=== PATIENT | male | born 1985 | race Caucasian/White ===

== ENCOUNTER 2016-09-10 13:52 | Emergency (ER) | payer OTHER ==
--- NOTE | 2016-09-10 16:03 | REP ---
Clinical: Right posterior headache . Comparison: None . Findings: The ventricles, sulci, and cisterns are normal in position and appearance. Boone-white differentiation is maintained. No acute intracranial hemorrhage, mass/mass effect, pathology or trauma/injury. No evidence for acute infarction. No extra-axial fluid collection. Calvarium is intact. Paranasal sinuses and mastoid air cells are clear. Impression: Normal noncontrast head CT. No evidence for acute intracranial pathology or trauma/injury. Signed by Berhane Gtz MD 09/10/2016 03:55 P
--- NOTE | 2016-09-10 16:46 | EDDOCDS ---
Physician Documentation [facility] Name: Glenn Jaime Age: 30 yrs Sex: Male : 1985 Arrival Date: 09/10/2016 Time: 13:52 Bed TR7 Private MD: NO PRIMARY PHYSICIAN, . Disposition: 09/10/16 16:15 Discharged to Home/Self Care. Impression: Headache associated with sexual activity. - Condition is Stable. - Discharge Instructions: General Headache Without Cause. - Prescriptions for Naprosyn 500 mg Oral Tablet - take 1 tablet by ORAL route every 12 hours As needed take with food; 30 tablet. Reglan 10 mg Oral Tablet - take 1 tablet by ORAL route every 8 hours As needed take 30 minutes before meals and at bedtime; 20 tablet. - Medication Reconciliation, Local Pharmacy Hours form. - Follow up: Emergency Department; When: As needed; Reason: Worsening of conditions. [facility]; When: Call to arrange an appointment; Reason: Recheck today's complaints, Continuance of care, To establish care. Follow up: Lachelle Wiggins MD; When: Call to arrange an appointment; Reason: Wound/Symptom Recheck, Further diagnostic work-up, Recheck today's complaints, Continuance of care, To establish care. - Problem is new. - Symptoms are unchanged. - Notes: THERE WAS NO ABNORMALITY ON YOUR CT SCAN TODAY. PLEASE RETURN TO THE ER WITH ANY WORSENING SYMPTOMS. Historical: - Allergies: No known drug Allergies; - Home Meds: 1. none - PMHx: none; - PSHx: left shoulder surgery x2; - Social history: Smoking status: Patient states was never smoker of tobacco. No barriers to communication noted, The patient speaks fluent Tristanian, Speaks appropriately for age. - Family history: Not pertinent. - : The pt / caregiver states he / she is not on anticoagulants. Home medication list is obtained from the patient. - Exposure Risk Screening:: None identified. Vital Signs: 09/10 13:53 BP 142 / 80; Pulse 78; Resp 18 S; Temp 97.3; Pulse Ox 99% on R/A; Weight 90.72 kg / 200 dd6 lbs (R); Height 5 ft. 11 in. (180.34 cm) (R); 16:15 BP 149 / 87; Pulse 60; Resp 18; Temp 97.8(O); Pulse Ox 99% on R/A; Pain 2/10; jb5 13:53 Body Mass Index 27.89 (90.72 kg, 180.34 cm) dd6 MDM: 15:03 [facility] Payment Agreement was scanned into [employer] and attached to record. lg 15:46 CT Head Without Contrast Ordered. EDMS 15:59 [facility] Payment Agreement was scanned into [employer] and attached to record. gjb 15:59 Financial registration complete. gjb Signatures: Dispatcher [employer] EDMS Tony Chavez, Reg Reg lg Roni Dueñas, RN RN Carina Connell, PAShahzad PAShahzad dt4 Kanwal Quan The chart was reviewed and I authenticate all verbal orders and agree with the evaluation and treatment provided.Attachments: 15:59 [facility] Payment Agreement gjb MTDD
--- NOTE | 2016-09-10 16:46 | EDDOCDS ---
Nurse's Notes [facility] Name: Glenn Jaime Age: 30 yrs Sex: Male : 1985 Arrival Date: 09/10/2016 Time: 13:52 Bed TR7 Private MD: NO PRIMARY PHYSICIAN, . Diagnosis: Headache associated with sexual activity Presentation: 09/10 13:54 Presenting complaint: Patient states: constant right back of head pain for the last dy couple weeks. pain with pressure that has been lingering. denies associated symptoms. has taken Excedrin with no relief but nothing for pain today. This patient has no additional risk factors. Adult Sepsis Screening: The patient does not have new or worsening altered mentation. Patient's respiratory rate is less than 22. Systolic blood pressure is greater than 100. Patient has a qSOFA score of 0- Negative Sepsis Screen. Suicide/Homicide risk assessment- the patient denies having any suicidal and/or homicidal ideations and does not present with any other emotional, behavioral or mental health complaints. Status: Patient is not a services coordinator or dependent. Transition of care: patient was not received from another setting of care. 13:54 Acuity: SHIKHA Level 4 dy 13:54 Method Of Arrival: Walkin/Carried/Asstd dy Triage Assessment: 13:56 Headache History: This patient does not have a history of previous headaches. General: dy Appears in no apparent distress. Pain: Location: right parietal area Pain currently is 2 out of 10 on a pain scale. Pain began 2-3 weeks ago Also complains of no other associated symptoms. HIV screening NA for this visit Offered previously. Neurological: Level of Consciousness is awake, alert, obeys commands. Historical: - Allergies: No known drug Allergies; - Home Meds: 1. none - PMHx: none; - PSHx: left shoulder surgery x2; - Social history: Smoking status: Patient states was never smoker of tobacco. No barriers to communication noted, The patient speaks fluent Yi, Speaks appropriately for age. - Family history: Not pertinent. - : The pt / caregiver states he / she is not on anticoagulants. Home medication list is obtained from the patient. - Exposure Risk Screening:: None identified. Screenin:44 Screening information is obtained from the patient. Fall risk: No risks identified. dy Assistance ADL's: requires no assistance with activities of daily living. Abuse/DV Screen: The patient / caregiver reports he/she is: not in a situation that causes fear, pain or injury. Nutritional screening: No deficits noted. Advance Directives: There is no active DNR order. home support is adequate. Assessment: 16:44 General: Appears in no apparent distress, comfortable, Behavior is appropriate for age, dy cooperative. Pain: Location: right parietal area Pain currently is 2 out of 10 on a pain scale. Vital Signs: 13:53 BP 142 / 80; Pulse 78; Resp 18 S; Temp 97.3; Pulse Ox 99% on R/A; Weight 90.72 kg (R); dd6 Height 5 ft. 11 in. (180.34 cm) (R); 16:15 BP 149 / 87; Pulse 60; Resp 18; Temp 97.8(O); Pulse Ox 99% on R/A; Pain 2/10; jb5 13:53 Body Mass Index 27.89 (90.72 kg, 180.34 cm) dd6 Vitals: 13:53 Log In Time: September 10, 2016 at 13:51. dd6 ED Course: 13:53 Patient visited by Jigar Infante PCA. dd6 13:53 NO PRIMARY PHYSICIAN, . is Private Physician. dd6 13:53 Patient moved to Waiting dd6 13:54 Patient moved to Pre RCE dd6 13:55 Triage Initiated dy 14:26 Patient moved to Triage 1 dy 14:50 Patient visited by Marlen Cast PCA. jb5 15:03 [facility] Payment Agreement was scanned into [employer] and attached to record. lg 15:29 Patient visited by Marlen Cast PCA. jb5 15:34 Carina Rudolph PA-C is PHCP. dt4 15:34 Shima Castro MD is Attending Physician. dt4 15:34 Patient visited by Carina Rudolph PA-C. dt4 15:46 Patient moved to TR1 jf3 15:59 [facility] Payment Agreement was scanned into [employer] and attached to record. gjb 16:13 Patient moved to PR1 / 25 jb5 16:14 [facility] is Referral Physician. dt4 16:14 Lachelle Wiggins MD is Referral Physician. dt4 16:15 Patient visited by Marlen Cast PCA. jb5 16:16 Patient visited by Marlen Cast PCA. jb5 16:22 CT Head Without Contrast Returned. EDMS 16:44 Patient moved to TR7 dy 16:44 The patient / caregiver is instructed regarding the plan of care and ED course. Patient dy has correct armband on for positive identification. 16:44 No IV's were initiated during this patient's visit. No procedures done that require dy assistance. Order Results: Radiology Order: CT Head Without Contrast Test: CT Head Without Contrast REASON FOR EXAMINATION: right posterior burger; Clinical: Right posterior headache .; ; Comparison: None .; ; Findings:; The ventricles, sulci, and cisterns are normal in position and appearance.; Boone-white differentiation is maintained. No acute intracranial hemorrhage,; mass/mass effect, pathology or trauma/injury. No evidence for acute infarction.; No extra-axial fluid collection. Calvarium is intact. Paranasal sinuses and; mastoid air cells are clear.; ; Impression:; Normal noncontrast head CT.; No evidence for acute intracranial pathology or trauma/injury.; ; ; Signed by; Berhane Gtz MD 09/10/2016 03:55 P; Outcome: 16:15 Discharge ordered by Provider. dt4 16:44 Discharge Assessment: patient administered narcotics - no. The following High Risk dy Discharge criteria are identified: None. Discharged to home ambulatory. Condition: good. Discharge instructions given to patient, Instructed on discharge instructions, follow up and referral plans. medication usage, Demonstrated understanding of instructions, medications, Pt was receptive of discharge instructions/ teaching. Prescriptions given X 2. CT Study completed. Property sent home with patient. 16:45 Patient left the ED. dy Signatures: Dispatcher [employer] EDDC Tony Chavez, Tariq Reg Roni Longoria RN RN dy Marlen Cast, SLATE MIXER SLATE MIXER jb5 Jigar Infante, SLATE MIXER SLATE MIXER dd6 Carina Rudolph PAShahzad PAOraC dt4 Glenn Pritchard RN RN Kanwal Whitlock MTDD
--- NOTE | 2016-09-12 17:47 | EDDOCDS ---
Physician Documentation [facility] Name: Glenn Jaime Age: 30 yrs Sex: Male : 1985 Arrival Date: 09/10/2016 Time: 13:52 Bed TR7 Private MD: NO PRIMARY PHYSICIAN, . Disposition: 09/10/16 16:15 Discharged to Home/Self Care. Impression: Headache associated with sexual activity. - Condition is Stable. - Discharge Instructions: General Headache Without Cause. - Prescriptions for Naprosyn 500 mg Oral Tablet - take 1 tablet by ORAL route every 12 hours As needed take with food; 30 tablet. Reglan 10 mg Oral Tablet - take 1 tablet by ORAL route every 8 hours As needed take 30 minutes before meals and at bedtime; 20 tablet. - Medication Reconciliation, Local Pharmacy Hours form. - Follow up: Emergency Department; When: As needed; Reason: Worsening of conditions. [facility]: [facility]; When: Call to arrange an appointment; Reason: Recheck today's complaints, Continuance of care, To establish care. Follow up: Lachelle Wiggins MD; When: Call to arrange an appointment; Reason: Wound/Symptom Recheck, Further diagnostic work-up, Recheck today's complaints, Continuance of care, To establish care. - Problem is new. - Symptoms are unchanged. - Notes: THERE WAS NO ABNORMALITY ON YOUR CT SCAN TODAY. PLEASE RETURN TO THE ER WITH ANY WORSENING SYMPTOMS. Historical: - Allergies: No known drug Allergies; - Home Meds: 1. none - PMHx: none; - PSHx: left shoulder surgery x2; - Social history: Smoking status: Patient states was never smoker of tobacco. No barriers to communication noted, The patient speaks fluent Montenegrin, Speaks appropriately for age. - Family history: Not pertinent. - : The pt / caregiver states he / she is not on anticoagulants. Home medication list is obtained from the patient. - Exposure Risk Screening:: None identified. Vital Signs: 09/10 13:53 BP 142 / 80; Pulse 78; Resp 18 S; Temp 97.3; Pulse Ox 99% on R/A; Weight 90.72 kg / 200 dd6 lbs (R); Height 5 ft. 11 in. (180.34 cm) (R); 16:15 BP 149 / 87; Pulse 60; Resp 18; Temp 97.8(O); Pulse Ox 99% on R/A; Pain 2/10; jb5 13:53 Body Mass Index 27.89 (90.72 kg, 180.34 cm) dd6 MDM: 15:03 [facility] Payment Agreement was scanned into [employer] and attached to record. lg 15:46 CT Head Without Contrast Ordered. EDMS 15:59 [facility] Payment Agreement was scanned into [employer] and attached to record. gjb 15:59 Financial registration complete. gj 09/11 09:25 T-Sheet-- Draft Copy was scanned into [employer] and attached to record. gb Signatures: Dispatcher [employer] EDMS Ginny Fontana, Reg Reg gb Tony Chavez, Reg Reg lg Roni Dueñas, RN RN Carina Connell, PA-C PA-C [email or web address] Kanwal Quan The chart was reviewed and I authenticate all verbal orders and agree with the evaluation and treatment provided.Attachments: 15:59 [facility] Payment Agreement [facility] 09/11 09:25 T-Sheet-- Draft Copy gb Chart Complete MTDD
--- NOTE | 2016-09-12 17:47 | EDDOCDS ---
Physician Documentation [facility] Name: Glenn Jaime Age: 30 yrs Sex: Male : 1985 Arrival Date: 09/10/2016 Time: 13:52 Bed TR7 Private MD: NO PRIMARY PHYSICIAN, . Disposition: 09/10/16 16:15 Discharged to Home/Self Care. Impression: Headache associated with sexual activity. - Condition is Stable. - Discharge Instructions: General Headache Without Cause. - Prescriptions for Naprosyn 500 mg Oral Tablet - take 1 tablet by ORAL route every 12 hours As needed take with food; 30 tablet. Reglan 10 mg Oral Tablet - take 1 tablet by ORAL route every 8 hours As needed take 30 minutes before meals and at bedtime; 20 tablet. - Medication Reconciliation, Local Pharmacy Hours form. - Follow up: Emergency Department; When: As needed; Reason: Worsening of conditions. [facility]: [facility]; When: Call to arrange an appointment; Reason: Recheck today's complaints, Continuance of care, To establish care. Follow up: Lachelle Wiggins MD; When: Call to arrange an appointment; Reason: Wound/Symptom Recheck, Further diagnostic work-up, Recheck today's complaints, Continuance of care, To establish care. - Problem is new. - Symptoms are unchanged. - Notes: THERE WAS NO ABNORMALITY ON YOUR CT SCAN TODAY. PLEASE RETURN TO THE ER WITH ANY WORSENING SYMPTOMS. Historical: - Allergies: No known drug Allergies; - Home Meds: 1. none - PMHx: none; - PSHx: left shoulder surgery x2; - Social history: Smoking status: Patient states was never smoker of tobacco. No barriers to communication noted, The patient speaks fluent Kosovan, Speaks appropriately for age. - Family history: Not pertinent. - : The pt / caregiver states he / she is not on anticoagulants. Home medication list is obtained from the patient. - Exposure Risk Screening:: None identified. Vital Signs: 09/10 13:53 BP 142 / 80; Pulse 78; Resp 18 S; Temp 97.3; Pulse Ox 99% on R/A; Weight 90.72 kg / 200 dd6 lbs (R); Height 5 ft. 11 in. (180.34 cm) (R); 16:15 BP 149 / 87; Pulse 60; Resp 18; Temp 97.8(O); Pulse Ox 99% on R/A; Pain 2/10; jb5 13:53 Body Mass Index 27.89 (90.72 kg, 180.34 cm) dd6 MDM: 15:03 [facility] Payment Agreement was scanned into [employer] and attached to record. lg 15:46 CT Head Without Contrast Ordered. EDMS 15:59 [facility] Payment Agreement was scanned into [employer] and attached to record. gjb 15:59 Financial registration complete. gj 09/11 09:25 T-Sheet-- Draft Copy was scanned into [employer] and attached to record. gb Signatures: Dispatcher [employer] EDMS Ginny Fontana, Reg Reg gb Tony Chavez, Reg Reg lg Roni Dueñas, RN RN Carina Connell, PA-C PA-C [email or web address] Kanwal Quan The chart was reviewed and I authenticate all verbal orders and agree with the evaluation and treatment provided.Attachments: 15:59 [facility] Payment Agreement [facility] 09/11 09:25 T-Sheet-- Draft Copy gb Chart Complete MTDD
--- NOTE | 2016-09-12 17:47 | EDDOCDS ---
Nurse's Notes [facility] Name: Glenn Jaime Age: 30 yrs Sex: Male : 1985 Arrival Date: 09/10/2016 Time: 13:52 Bed TR7 Private MD: NO PRIMARY PHYSICIAN, . Diagnosis: Headache associated with sexual activity Presentation: 09/10 13:54 Presenting complaint: Patient states: constant right back of head pain for the last dy couple weeks. pain with pressure that has been lingering. denies associated symptoms. has taken Excedrin with no relief but nothing for pain today. This patient has no additional risk factors. Adult Sepsis Screening: The patient does not have new or worsening altered mentation. Patient's respiratory rate is less than 22. Systolic blood pressure is greater than 100. Patient has a qSOFA score of 0- Negative Sepsis Screen. Suicide/Homicide risk assessment- the patient denies having any suicidal and/or homicidal ideations and does not present with any other emotional, behavioral or mental health complaints. Status: Patient is not a service restorer emergency or dependent. Transition of care: patient was not received from another setting of care. 13:54 Acuity: SHIKHA Level 4 dy 13:54 Method Of Arrival: Walkin/Carried/Asstd dy Triage Assessment: 13:56 Headache History: This patient does not have a history of previous headaches. General: dy Appears in no apparent distress. Pain: Location: right parietal area Pain currently is 2 out of 10 on a pain scale. Pain began 2-3 weeks ago Also complains of no other associated symptoms. HIV screening NA for this visit Offered previously. Neurological: Level of Consciousness is awake, alert, obeys commands. Historical: - Allergies: No known drug Allergies; - Home Meds: 1. none - PMHx: none; - PSHx: left shoulder surgery x2; - Social history: Smoking status: Patient states was never smoker of tobacco. No barriers to communication noted, The patient speaks fluent Telugu, Speaks appropriately for age. - Family history: Not pertinent. - : The pt / caregiver states he / she is not on anticoagulants. Home medication list is obtained from the patient. - Exposure Risk Screening:: None identified. Screenin:44 Screening information is obtained from the patient. Fall risk: No risks identified. dy Assistance ADL's: requires no assistance with activities of daily living. Abuse/DV Screen: The patient / caregiver reports he/she is: not in a situation that causes fear, pain or injury. Nutritional screening: No deficits noted. Advance Directives: There is no active DNR order. home support is adequate. Assessment: 16:44 General: Appears in no apparent distress, comfortable, Behavior is appropriate for age, dy cooperative. Pain: Location: right parietal area Pain currently is 2 out of 10 on a pain scale. Vital Signs: 13:53 BP 142 / 80; Pulse 78; Resp 18 S; Temp 97.3; Pulse Ox 99% on R/A; Weight 90.72 kg (R); dd6 Height 5 ft. 11 in. (180.34 cm) (R); 16:15 BP 149 / 87; Pulse 60; Resp 18; Temp 97.8(O); Pulse Ox 99% on R/A; Pain 2/10; jb5 13:53 Body Mass Index 27.89 (90.72 kg, 180.34 cm) dd6 Vitals: 13:53 Log In Time: September 10, 2016 at 13:51. dd6 ED Course: 13:53 Patient visited by Jigar Infante PCA. dd6 13:53 NO PRIMARY PHYSICIAN, . is Private Physician. dd6 13:53 Patient moved to Waiting dd6 13:54 Patient moved to Pre RCE dd6 13:55 Triage Initiated dy 14:26 Patient moved to Triage 1 dy 14:50 Patient visited by Marlen Cast PCA. jb5 15:03 [facility] Payment Agreement was scanned into [employer] and attached to record. lg 15:29 Patient visited by Marlen Cast PCA. jb5 15:34 Carina Rudolph PA-C is PHCP. dt4 15:34 Shima Castro MD is Attending Physician. dt4 15:34 Patient visited by Carina Rudolph PA-C. dt4 15:46 Patient moved to TR1 jf3 15:59 [facility] Payment Agreement was scanned into [employer] and attached to record. gjb 16:13 Patient moved to PR1 / 25 jb5 16:14 [facility] is Referral Physician. dt4 16:14 Lachelle Wiggins MD is Referral Physician. dt4 16:15 Patient visited by Marlen Cast PCA. jb5 16:16 Patient visited by Marlen Cast PCA. jb5 16:22 CT Head Without Contrast Returned. EDMS 16:44 Patient moved to TR7 dy 16:44 The patient / caregiver is instructed regarding the plan of care and ED course. Patient dy has correct armband on for positive identification. 16:44 No IV's were initiated during this patient's visit. No procedures done that require dy assistance. 09/11 09:25 T-Sheet-- Draft Copy was scanned into [employer] and attached to record. gb Order Results: Radiology Order: CT Head Without Contrast Test: CT Head Without Contrast REASON FOR EXAMINATION: right posterior burger; Clinical: Right posterior headache .; ; Comparison: None .; ; Findings:; The ventricles, sulci, and cisterns are normal in position and appearance.; Boone-white differentiation is maintained. No acute intracranial hemorrhage,; mass/mass effect, pathology or trauma/injury. No evidence for acute infarction.; No extra-axial fluid collection. Calvarium is intact. Paranasal sinuses and; mastoid air cells are clear.; ; Impression:; Normal noncontrast head CT.; No evidence for acute intracranial pathology or trauma/injury.; ; ; Signed by; Berhane Gtz MD 09/10/2016 03:55 P; Outcome: 09/10 16:15 Discharge ordered by Provider. dt4 16:44 Discharge Assessment: patient administered narcotics - no. The following High Risk dy Discharge criteria are identified: None. Discharged to home ambulatory. Condition: good. Discharge instructions given to patient, Instructed on discharge instructions, follow up and referral plans. medication usage, Demonstrated understanding of instructions, medications, Pt was receptive of discharge instructions/ teaching. Prescriptions given X 2. CT Study completed. Property sent home with patient. 16:45 Patient left the ED. dy Signatures: [facility] Ginny Fontana, Reg Reg gb Tony Chavez, Reg Reg lg oRni Dueñas RN RN dy Baker, Janet, COMMERCIAL ROOFER COMMERCIAL ROOFER jb5 Jigar Infante, COMMERCIAL ROOFER COMMERCIAL ROOFER dd6 Carina Rudolph, PA-C PA-C dt4 Glenn Pritchard RN RN jf3 Beck, Gabriela gjb Chart Complete MTDD
== END 2016-09-10 16:45 | disposition home or self-care (01) ==
LOC: M ED 13:52
DX: R51 Headache (principal)

== ENCOUNTER 2016-09-22 07:00 | Outpatient (RCR) | payer OTHER | END 2016-09-28 | LOC: M PT 07:00 | PROVIDERS: ATTEND Internal Medicine | DX: Z51.89 Encounter for other specified aftercare (principal); R10.30 Lower abdominal pain, unspecified ==

== ENCOUNTER 2016-11-02 15:11 | Emergency (ER) | payer OTHER ==
[~2016-11-02] VITALS: Ht 180.3 cm; Wt 90.7 kg
[2016-11-02] MEDS ORDERED: LISI10TA4 PO (15:33)
[2016-11-02] MEDS ORDERED: MELO15TA4 PO (15:33)
[2016-11-02 17:26] VITALS: BP 143/86
== END 2016-11-02 17:42 | disposition home or self-care (01) ==
LOC: M ED 17:05
DX: S73.192A Other sprain of left hip, initial encounter (principal); X50.1XXA Overexertion from prolonged static or awkward postures, initial encounter; Y92.89 Other specified places as the place of occurrence of the external cause; Y93.89 Activity, other specified; Y99.0 Civilian activity done for income or pay

== ENCOUNTER 2016-11-22 07:57 | Outpatient (RCR) | payer OTHER ==
[~2016-11-22 07:57] MED LIST: LISI10TA4 PO; MELO15TA4 PO
== END 2016-11-26 ==
LOC: M PT 07:57
PROVIDERS: ATTEND Orthopaedic Surgery
DX: Z51.89 Encounter for other specified aftercare (principal); M47.894 Other spondylosis, thoracic region

== ENCOUNTER 2016-12-02 08:33 | Outpatient (RCR) | payer OTHER | END 2016-12-26 | LOC: M PT 08:33 | PROVIDERS: ATTEND Orthopaedic Surgery | DX: Z51.89 Encounter for other specified aftercare (principal); M47.894 Other spondylosis, thoracic region ==

== ENCOUNTER 2018-06-28 08:41 | Emergency (ER) | payer OTHER ==
[2018-06-28] MEDS: KETOROLAC TROMETHAMINE 10 MG TAB PO (09:14)
== END 2018-06-28 10:10 | disposition home or self-care (01) ==
LOC: M ED 08:41
DX: S46.912A Strain of unspecified muscle, fascia and tendon at shoulder and upper arm level, left arm, initial encounter (principal); X50.0XXA Overexertion from strenuous movement or load, initial encounter; Y92.59 Other trade areas as the place of occurrence of the external cause; Y99.0 Civilian activity done for income or pay; Z98.890 Other specified postprocedural states; I10 Essential (primary) hypertension
CPT/HCPCS: 73030

== ENCOUNTER 2024-05-28 17:06 | Inpatient (IN) | payer OTHER ==
[~2024-05-28] VITALS: Ht 180.3 cm; Wt 75.9 kg
[~2024-05-28 17:06] MED LIST changes: +KETO10TAB PO; +LISI10TA22 PO; -LISI10TA4 PO; +MELO15TA28 PO; -MELO15TA4 PO
[2024-05-28] MEDS: AUGMENTIN 875 MG TAB PO ONE (21:16)
[2024-05-28] MEDS: KETOROLAC 60MG 2ML VIAL IM ONE (21:17)
[2024-05-28 21:35] LABS: BASO % 0.2 % (0.0-1.0); EOS % 0.2 % (0.0-3.0); HEMATOCRIT 45.1 % (42.0-52.0); HEMOGLOBIN 15.3 g/dl (13.5-17.5); LYMPH # 1.4 10^3/uL (1.5-5.0); LYMPH % 10.8 % (24.0-44.0); MEAN CORPUSCULAR HEMOGLOBIN 30.5 pg (27.0-33.0); MEAN CORPUSCULAR HGB CONC 33.9 g/dl (32.0-36.5); MEAN CORPUSCULAR VOLUME 89.8 fl (80.0-96.0); MONO # 1.1 10^3/uL (0.0-0.8); MONO % 8.4 % (2.0-8.0); NEUTROPHILS # 10.6 10^3/uL (1.5-8.5); PLATELET COUNT, AUTOMATED 260 10^3/uL (150-450); RED BLOOD COUNT 5.02 10^6/uL (4.30-6.10); WHITE BLOOD COUNT 13.2 10^3/uL (4.0-10.0)
[2024-05-28 21:59] LABS: ERYTHROCYTE SEDIMENTATION RATE 59 mm/hr (0-15)
[2024-05-28 22:06] LABS: BLOOD UREA NITROGEN 10 MG/DL (9-23); CALCIUM LEVEL 9.9 MG/DL (8.5-10.1); CARBON DIOXIDE LEVEL 27 MMOL/L (20-31); CHLORIDE LEVEL 102 MMOL/L (98-107); CREATININE FOR GFR 0.82 MG/DL (0.70-1.30); GLOMERULAR FILTRATION RATE > 60.0 (>60); GLUCOSE, FASTING 102 MG/DL (60-100); POTASSIUM SERUM 3.8 MMOL/L (3.5-5.1); SODIUM LEVEL 138 MMOL/L (136-145)
[2024-05-28] MEDS ORDERED: ISOVUE-370 76% 100ML VIAL As Ordered ONE (22:36)
[2024-05-28] MEDS: PIPERACILLIN/TAZOBACTAM SOD 4.5 GM in D5W MINI-BAG PLUS 50 ML IV ONE (23:01)
[2024-05-28] MEDS: NS 1,000 ML IV ONE (23:01)
[2024-05-29] MEDS ORDERED: MORPHINE 2 MG/ML 1ML VIAL IV PRN (01:50)
[2024-05-29] MEDS ORDERED: ACET-897 PO (02:06)
[2024-05-29] MEDS ORDERED: AMOX875T PO (02:06)
[2024-05-29] MEDS ORDERED: PERI12LIQ PO (02:06)
[2024-05-29] MEDS ORDERED: IBUP80TA PO (02:06)
[2024-05-29] MEDS ORDERED: LIDO15SO8 PO (02:06)
[2024-05-29] MEDS ORDERED: HOME MED LIST COMPLETE! XX SCH (02:10)
[2024-05-29] MEDS: NS 1,000 ML IV SCH (02:14)
[2024-05-29] MEDS: NS 1,000 ML IV ONE (02:38)
[2024-05-29] MEDS: dexAMETHasone 20MG/5ML VIAL IV SCH (02:38)
[2024-05-29] MEDS ORDERED: KETOROLAC 30 MG/ML 1ML VIAL IV PRN (03:00)
[2024-05-29] MEDS: AMPICILLIN SOD/SULBACTAM SOD 3 GM in D5W MINI-BAG PLUS 100 ML IV SCH (03:39)
[2024-05-29 05:39] VITALS: BP 140/86; TEMP 97.5; O2SAT 99
[2024-05-29 07:50] VITALS: BP 110/64; TEMP 97.5; O2SAT 100
[2024-05-29 11:48] VITALS: BP 128/75; TEMP 97.8; O2SAT 96
[2024-05-29 16:00] VITALS: BP 132/68; TEMP 98.8; O2SAT 99
[2024-05-29 20:39] VITALS: BP 119/72; TEMP 97.3; O2SAT 97
[2024-05-30 00:08] VITALS: BP 115/76; TEMP 97.6; O2SAT 97
[2024-05-30 03:48] VITALS: BP 146/83; TEMP 97.3; O2SAT 97
[2024-05-30 07:55] VITALS: BP 126/65; TEMP 98.2; O2SAT 98
[2024-05-30 09:00] LABS: HEMATOCRIT 37.5 % (42.0-52.0); MEAN CORPUSCULAR HEMOGLOBIN 30.7 pg (27.0-33.0); MEAN CORPUSCULAR HGB CONC 34.4 g/dl (32.0-36.5); MEAN CORPUSCULAR VOLUME 89.3 fl (80.0-96.0); PLATELET COUNT, AUTOMATED 253 10^3/uL (150-450); WHITE BLOOD COUNT 13.8 10^3/uL (4.0-10.0)
[2024-05-30 09:04] LABS: HEMOGLOBIN 12.9 g/dl (13.5-17.5)
[2024-05-30 09:22] LABS: BLOOD UREA NITROGEN 12 MG/DL (9-23); CARBON DIOXIDE LEVEL 26 MMOL/L (20-31); CHLORIDE LEVEL 111 MMOL/L (98-107); CREATININE FOR GFR 0.71 MG/DL (0.70-1.30); GLOMERULAR FILTRATION RATE > 60.0 (>60); GLUCOSE, FASTING 135 MG/DL (60-100); POTASSIUM SERUM 3.9 MMOL/L (3.5-5.1); SODIUM LEVEL 142 MMOL/L (136-145)
[2024-05-30 12:00] VITALS: BP 121/63; TEMP 97.7; O2SAT 98
[2024-05-30] MEDS ORDERED: AUGM500T34 PO (16:18)
== END 2024-05-30 17:30 | disposition home or self-care (01) | DRG 158 ==
LOC: M ED 17:06 → M ED INP 05-29 01:51 → M PCU 05-29 05:35
PROVIDERS: ADMIT Internal Medicine; ATTEND Student in an Organized Health Care Education/Training Program
DX: K12.2 Cellulitis and abscess of mouth (principal); L03.211 Cellulitis of face; M27.2 Inflammatory conditions of jaws; K04.7 Periapical abscess without sinus

== ENCOUNTER → 2024-06-20 | Outpatient (CLI) | payer OTHER ==
[~2024-06-20] MED LIST changes: +ACET-897 PO; +AMOX875T PO; +AUGM500T34 PO; +IBUP80TA PO; +LIDO15SO8 PO; +PERI12LIQ PO
== END ==
LOC: M RAD 12:32
PROVIDERS: ATTEND Internal Medicine
DX: M47.22 Other spondylosis with radiculopathy, cervical region (principal); M50.122 Cervical disc disorder at C5-C6 level with radiculopathy